=== PATIENT | female | born 1985 | race Caucasian/White ===

== ENCOUNTER 2016-06-01 13:30 | Emergency (ER) | payer BC ==
[2016-06-01] MEDS ORDERED: ONDANSETRON 4 MG/2 ML VIAL IVP STA (14:29)
[2016-06-01] MEDS ORDERED: SODIUM CHLORIDE 0.9% 1,000 ML IV STA ×2 (14:29)
[2016-06-01] MEDS ORDERED: MORPHINE SULFATE 4 MG/ML SYRINGE IV STA (14:29)
[2016-06-01 15:06] LABS: Basophils # (A) 0.1 k/uL (0-0.2); Basophils % (A) 0 %; CH 27.7; CHCM 32.8; Eosinophils # (A) 0.1 k/uL (0-0.7); Eosinophils % (A) 1 %; HDW 2.27; HGB 13.9 gm/dL (11.4-16.0); Luc # (Auto) 0.27; Luc % (Auto) 2; Lymphocytes # (A) 2.5 k/uL (1.0-4.8); Lymphocytes % (A) 20 %; MCH 26.8 pg (25.0-35.0); MCHC 31.6 g/dL (31.0-37.0); MCV 84.7 fL (80.0-100.0); Mean Platelet Volume 6.6; Monocytes # (A) 0.5 k/uL (0-1.0); Monocytes % (A) 4 %; Neutrophils # (A) 9.4 k/uL (1.3-7.7); Neutrophils % (A) 74 %; RDW 12.5 % (11.5-15.5); WBC 12.7 k/uL (3.8-10.6); WBC (Perox) 12.86
[2016-06-01 15:07] LABS: Appearance,Urine Clear (Clear); Bilirubin,Urine Negative (Negative); Glucose,Urine (UA) Negative (Negative); Ketones,Urine Negative (Negative); Leukocyte Esterase,Urine Negative (Negative); Nitrite,Urine Negative (Negative); PH, Urine 6.5 (5.0-8.0); Protein,Urine Negative (Negative); Specific Gravity,Urine 1.005 (1.001-1.035); UA Billing (MACRO vs. MICRO) CHEM; Urobilinogen,Urine <2.0 mg/dL (<2.0)
[2016-06-01 15:22] LABS: ALT 37 U/L (9-52); AST 28 U/L (14-36); Alkaline Phosphatase 80 U/L (38-126); Amylase 48 U/L (30-110); Anion Gap 10 mmol/L; Blood Urea Nitrogen 15 mg/dL (7-17); C Reactive Protein <5.0 mg/L (<10.0); Carbon Dioxide 29 mmol/L (22-30); Chloride 104 mmol/L (98-107); Glucose 93 mg/dL (74-99); Non-African American GFR(MDRD) >60 (>60 ml/min/1.73 sqM); Potassium 3.9 mmol/L (3.5-5.1); Sodium 143 mmol/L (137-145); Total Bilirubin 0.4 mg/dL (0.2-1.3); Total Protein 7.8 g/dL (6.3-8.2)
[2016-06-01] MEDS ORDERED: RX INFO: IV CONTRAST WAS GIVEN 1 EACH MISC MISCELLANE PRN (16:08)
[2016-06-01] MEDS ORDERED: metroNIDAZOLE-NS PMX 500 MG in SALINE 1 100ML.BAG IVPB STA (16:09)
[2016-06-01] MEDS ORDERED: KETOROLAC 30 MG/ML 1 ML VIAL IVP STA (16:10)
[2016-06-01] MEDS ORDERED: METOCLOPRAMIDE 5 MG/ML 2 ML VIAL IVP STA (16:24)
--- NOTE | 2016-06-01 16:26 | XR ---
EXAMINATION TYPE: XR chest 2V DATE OF EXAM: 06/01/2016 4:23 PM COMPARISON: NONE INDICATION: Chest pain TECHNIQUE: Single frontal view of the chest is obtained. FINDINGS: The heart size is normal. The pulmonary vasculature is normal. The lungs are clear. IMPRESSION: 1. No acute pulmonary process.
--- NOTE | 2016-06-01 16:35 | XR ---
EXAMINATION TYPE: XR KUB DATE OF EXAM: 06/01/2016 4:23 PM COMPARISON: NONE INDICATION: Abdomen pain TECHNIQUE: 2 view abdomen upright view and frontal supine view FINDINGS: There is a normal bowel gas pattern. Psoas margins are normal. No organomegaly is present. No suspicious air-fluid levels or differential air-fluid levels are present. No free air is evident. IMPRESSION: 1. Unremarkable Abdomen
--- NOTE | 2016-06-01 16:52 | CT ---
EXAMINATION TYPE: CT abdomen pelvis w con DATE OF EXAM: 06/01/2016 4:43 PM COMPARISON: NONE INDICATION: Mid abdominal pain that radiates to back and left clavicle. DLP: 472.10 mGycm, Automated exposure control for dose reduction was used. CONTRAST: 100 mL of Omnipaque 300. Study performed without Oral Contrast TECHNIQUE: Axial images were obtained from above the diaphragm to the pubic rami in the axial plane a t 5 mm thick sections. Reconstructed images are reviewed on the computer in the coronal plane. FINDINGS: Limited CT sections are obtained the lung bases. The lung bases are clear. CT ABDOMEN: Liver: Normal Spleen: Normal Pancreas: Normal Adrenal glands: The adrenal glands are normal. Gallbladder: Normal , no pericholecystic fluid is evident. Kidneys: No masses are evident. No hydronephrosis is present. No cysts are present. Delayed images were obtained through the kidneys, which remain unremarkable. Aorta: Normal Inferior vena cava: Normal. CT PELVIS: Loops of bowel within the abdomen and pelvis are normal. Appendix: Not identified. Surgical clips suggesting prior resection. Correlate with the history. Urinary bladder: Normal. Genitourinary structures: Uterus is unremarkable. Adnexal regions are clear. Osseous structures: No suspicious lytic or sclerotic lesions. IMPRESSIONS: 1. No acute process evident.
[2016-06-01] MEDS ORDERED: SODIUM CHLORIDE 0.9% 1,000 ML IV ONE (17:53)
--- NOTE | 2016-06-01 17:53 | ED ---
Abdominal Pain HPI - General Chief Complaint: Abdominal Pain Stated Complaint: abdominal Pain Time Seen by Provider: 06/01/16 14:19 Source: patient Mode of arrival: ambulatory Limitations: no limitations - History of Present Illness Initial Comments: [place] pain since yesterday, started around 4 PM this in the umbilical area she denies any nausea and vomiting no diarrhea she status post appendectomy in 2007 , no history of gallstones no history of kidney stones. Denies any headaches no neck stiffness no chest pain does have a some referred pain to the left shoulder region. He denies any coughing or any sputum production he does hurt with a deep breaths - Related Data Home Medications Medication Instructions Recorded Confirmed Pnv with Ca,No.72/Iron/FA 1 tab PO HS 06/01/16 06/01/16 [ Plus Tablet] Previous Rx's Medication Instructions Recorded Pantoprazole [Protonix] 40 mg PO ONCE #30 tablet. 06/01/16 Allergies Allergy/AdvReac Type Severity Reaction Status Date / Time drospirenone [From FRANDY (28)] Allergy Unknown Verified 06/01/16 14:35 ethinyl estradiol Allergy Unknown Verified 06/01/16 14:35 [From FRANDY (28)] Review of Systems ROS Statement: Those systems with pertinent positive or pertinent negative responses have been documented in the HPI. ROS Other: All systems not noted in ROS Statement are negative. Past Medical History Past Medical History: No Reported History Additional Past Medical History / Comment(s): hx migraines, abdominal pain and mucous and blood rectally, History of Any Multi-Drug Resistant Organisms: None Reported Past Surgical History: Adenoidectomy, Appendectomy, Tonsillectomy Past Anesthesia/Blood Transfusion Reactions: No Reported Reaction Past Psychological History: No Psychological Hx Reported Smoking Status: Never smoker Past Alcohol Use History: Occasional Past Drug Use History: None Reported - Past Family History Mother Family Medical History: Cancer General Exam - General Exam Comments Initial Comments: General: The patient is awake and alert, in moderate distress Skin: Skin is warm and dry and no rashes or lesions are noted. Eye: Pupils are equal, round and reactive to light, extra-ocular movements are intact; there is normal conjunctiva bilaterally. Ears, nose, mouth and throat: There are moist mucous membranes and no oral lesions. Neck: The neck is supple, there is no tenderness Cardiovascular: There is a regular rate and rhythm. No murmur, rub or gallop is appreciated. Respiratory: To auscultation bilateral, no wheezing no rhonchi no distress respiratory florez noticed Gastrointestinal: Tender and paraumbilical area, no tenderness noticed him other parts of the abdomen, bowel sounds are positive Back: There is no tenderness to palpation in the midline. There is no obvious deformity. Musculoskeletal: Normal ROM, no tenderness, There is no pedal edema. There is no calf tenderness or swelling. No cords were appreciated. Neurological: CN II-XII intact, Cranial nerves III through XII are intact. There are no obvious motor or sensory deficits. Coordination appears grossly intact. Speech is normal. Psychiatric: Cooperative, appropriate mood & affect, normal judgment. Limitations: no limitations Course Vital Signs 06/01/16 06/01/16 06/01/16 13:33 16:44 17:45 Temperature 97.4 F L 98.1 F 97.8 F Pulse Rate 73 78 70 Respiratory 16 18 18 Rate Blood Pressure 111/66 99/58 83/45 O2 Sat by Pulse 99 99 100 Oximetry 06/01/16 18:27 Temperature Pulse Rate 76 Respiratory 18 Rate Blood Pressure 85/48 O2 Sat by Pulse 100 Oximetry Is in was reassessed 3 times during her stay in the ER, white count is slightly elevated 12.7 d-dimer is negative compressive metabolic panel is negative beta hCG is negative urine is negative his C-reactive protein is negative as far as imaging studies are concerning CT abdomen is unremarkable KUB and chest x-rays are unremarkable considering her abdominal pain could be from mom a cold sores in the stomach or duodenum patient was offered observation in the hospital for pain management or she can go home with some pain meds and PPIs and will refer her to Dr. Amin who did her colonoscopy sometime in the recent past she agreed with later she was given some morphine before she is discharged 4 mg intramuscular and now she be given a prescription for omeprazole 20 mg 1 tablet daily for one month as she be referred to Dr. Amin for EGD - Reevaluation(s) Reevaluation #2: 06/01/16 18:45 Patient was uncomfortable with the narcotics and she was advised to known stated oral anti-inflammatories are contraindicated she was advised to take Tylenol 1 g by mouth every 6 when necessary and numb protonic 40 mg by mouth once daily #30 Medical Decision Making - Lab Data Result diagrams: 06/01/16 14:40 06/01/16 14:40 Lab Results 06/01/16 06/01/16 06/01/16 Range/Units 14:40 14:40 14:40 WBC 12.7 H (3.8-10.6) k/uL RBC 5.20 (3.80-5.40) m/uL Hgb 13.9 (11.4-16.0) gm/dL Hct 44.0 (34.0-46.0) % MCV 84.7 (80.0-100.0) fL MCH 26.8 (25.0-35.0) pg MCHC 31.6 (31.0-37.0) g/dL RDW 12.5 (11.5-15.5) % Plt Count 392 (150-450) k/uL Neutrophils % 74 % Lymphocytes % 20 % Monocytes % 4 % Eosinophils % 1 % Basophils % 0 % Neutrophils # 9.4 H (1.3-7.7) k/uL Lymphocytes # 2.5 (1.0-4.8) k/uL Monocytes # 0.5 (0-1.0) k/uL Eosinophils # 0.1 (0-0.7) k/uL Basophils # 0.1 (0-0.2) k/uL D-Dimer (<0.60) mg/L FEU Sodium 143 (137-145) mmol/L Potassium 3.9 (3.5-5.1) mmol/L Chloride 104 (98-107) mmol/L Carbon Dioxide 29 (22-30) mmol/L Anion Gap 10 mmol/L BUN 15 (7-17) mg/dL Creatinine 0.70 (0.52-1.04) mg/dL Est GFR (MDRD) Af Amer >60 (>60 ml/min/1.73 sqM) Est GFR (MDRD) Non-Af >60 (>60 ml/min/1.73 sqM) Glucose 93 (74-99) mg/dL Calcium 10.0 (8.4-10.2) mg/dL Total Bilirubin 0.4 (0.2-1.3) mg/dL AST 28 (14-36) U/L ALT 37 (9-52) U/L Alkaline Phosphatase 80 (38-126) U/L C-Reactive Protein <5.0 (<10.0) mg/L Total Protein 7.8 (6.3-8.2) g/dL Albumin 4.8 (3.5-5.0) g/dL Amylase 48 (30-110) U/L Lipase 73 (23-300) U/L Urine Color Light Yellow Urine Appearance Clear (Clear) Urine pH 6.5 (5.0-8.0) Ur Specific [place] 1.005 (1.001-1.035) Urine Protein Negative (Negative) Urine Glucose (UA) Negative (Negative) Urine Ketones Negative (Negative) Urine Blood Negative (Negative) Urine Nitrate Negative (Negative) Urine Bilirubin Negative (Negative) Urine Urobilinogen <2.0 (<2.0) mg/dL Ur Leukocyte Esterase Negative (Negative) Urine HCG, Qual (Not Detectd) 06/01/16 06/01/16 Range/Units 14:40 14:40 WBC (3.8-10.6) k/uL RBC (3.80-5.40) m/uL Hgb (11.4-16.0) gm/dL Hct (34.0-46.0) % MCV (80.0-100.0) fL MCH (25.0-35.0) pg MCHC (31.0-37.0) g/dL RDW (11.5-15.5) % Plt Count (150-450) k/uL Neutrophils % % Lymphocytes % % Monocytes % % Eosinophils % % Basophils % % Neutrophils # (1.3-7.7) k/uL Lymphocytes # (1.0-4.8) k/uL Monocytes # (0-1.0) k/uL Eosinophils # (0-0.7) k/uL Basophils # (0-0.2) k/uL D-Dimer 0.37 (<0.60) mg/L FEU Sodium (137-145) mmol/L Potassium (3.5-5.1) mmol/L Chloride (98-107) mmol/L Carbon Dioxide (22-30) mmol/L Anion Gap mmol/L BUN (7-17) mg/dL Creatinine (0.52-1.04) mg/dL Est GFR (MDRD) Af Amer (>60 ml/min/1.73 sqM) Est GFR (MDRD) Non-Af (>60 ml/min/1.73 sqM) Glucose (74-99) mg/dL Calcium (8.4-10.2) mg/dL Total Bilirubin (0.2-1.3) mg/dL AST (14-36) U/L ALT (9-52) U/L Alkaline Phosphatase (38-126) U/L C-Reactive Protein (<10.0) mg/L Total Protein (6.3-8.2) g/dL Albumin (3.5-5.0) g/dL Amylase (30-110) U/L Lipase (23-300) U/L Urine Color Urine Appearance (Clear) Urine pH (5.0-8.0) Ur Specific [place] (1.001-1.035) Urine Protein (Negative) Urine Glucose (UA) (Negative) Urine Ketones (Negative) Urine Blood (Negative) Urine Nitrate (Negative) Urine Bilirubin (Negative) Urine Urobilinogen (<2.0) mg/dL Ur Leukocyte Esterase (Negative) Urine HCG, Qual Not Detected (Not Detectd) Disposition Clinical Impression: Abdominal pain Disposition: HOME SELF-CARE Condition: Good Additional Instructions: Advised to come back if symptoms get worse Prescriptions: Pantoprazole [Protonix] 40 mg PO ONCE #30 tablet.dr Referrals: Maco Espino MD [Primary Care Provider] - 1-2 days Aylin Wen MD [STAFF PHYSICIAN] - 1-2 days
[2016-06-01] MEDS ORDERED: SODIUM CHLORIDE 0.9% 1,000 ML IV SCH (18:00)
[2016-06-01] MEDS ORDERED: MORPHINE SULFATE 10 MG/ML SYRINGE IM STA (18:36)
[2016-06-01 19:16] VITALS: BP 93/60; PULSE 59; RESP 16; TEMP 98
== END 2016-06-01 19:16 | disposition home or self-care (01) ==
LOC: EC 13:30
DX: R10.33 Periumbilical pain (principal); Z88.8 Allergy status to other drugs, medicaments and biological substances; Z98.890 Other specified postprocedural states
CPT/HCPCS: 36415; 85379; 80053; 82150; 83690; 85025; 86140; 81003; 81025; 71020; 74000; 74177; 99284; 96365; 96367; 96375 ×4; 96372; 96361 ×2; J2270; J2765; J2405; J0696; J1885; Q9967

== ENCOUNTER 2018-01-22 02:27 | Inpatient (IN) | payer BC ==
[2018-01-22] MEDS ORDERED: SODIUM CHLORIDE 0.9% 1,000 ML IV ONE (02:30)
[2018-01-22] MEDS ORDERED: DILTIAZEM DRIP BOLUS FROM BAG 1 MG SOLN IV ONE (02:44)
[2018-01-22] MEDS ORDERED: DILTIAZEM 50 MG in SODIUM CHLORIDE 0.9% 40 ML IV SCH (02:45)
--- NOTE | 2018-01-22 02:51 | ED ---
Arrhythmia/Palpitations HPI - General Chief Complaint: Arrhythmia/Palpitations Stated Complaint: Palpitations Time Seen by Provider: 01/22/18 02:28 Source: patient Mode of arrival: EMS Limitations: no limitations - History of Present Illness Initial Comments: Rosa is a previously healthy 32-year-old female who is currently nearly 7 months and breast-feeding. She presents to the ED today via EMS for evaluation of palpitations. Patient reports she's been in her usual state of health, she not on any medications aside from [id number] Zyrtec for her seasonal ALLERGIES. She reports that she went to bed at her usual time and woke around 2 AM experiencing palpitations. Patient thought this was just related to a dream, she picked up [id number] child and carried the child back to her own bed. She then returned to her bedroom and noted that she is still having palpitations. She woke up her and asked him to feel her heartbeat, he agreed with her that her heart was racing but he then fell back asleep. Patient reports that her palpitations persisted for approximately 30 minutes, she got up and drink cold water and attempt to slow her heart down with no effect. At which time she decided to call for transfer to the hospital for further evaluation. Patient denies any preceding chest pain, shortness of breath or recent illness. She has no known cardiac disease. No family history of cardiac disease. No family history of sudden cardiac or arrhythmias that she is aware of. Patient does report that she intermittently gets some palpitations but assumed that this was related to exhaustion. - Related Data Home Medications Medication Instructions Recorded Confirmed Pnv,Calcium 72/Iron/Folic Acid 1 tab PO HS 06/01/16 01/22/17 [ Plus Tablet] Cetirizine HCl [Zyrtec] 10 mg PO HS 01/22/17 01/22/17 Allergies Allergy/AdvReac Type Severity Reaction Status Date / Time drospirenone [From FRANDY (28)] Allergy Unknown Verified 01/22/17 17:07 ethinyl estradiol Allergy Unknown Verified 01/22/17 17:07 [From FRANDY (28)] Review of Systems ROS Statement: Those systems with pertinent positive or pertinent negative responses have been documented in the HPI. ROS Other: All systems not noted in ROS Statement are negative. Past Medical History Past Medical History: No Reported History Additional Past Medical History / Comment(s): hx migraines, abdominal pain and mucous and blood rectally, still born History of Any Multi-Drug Resistant Organisms: None Reported Past Surgical History: Adenoidectomy, Appendectomy, Tonsillectomy Past Anesthesia/Blood Transfusion Reactions: No Reported Reaction Past Psychological History: No Psychological Hx Reported Smoking Status: Never smoker Past Alcohol Use History: None Reported Past Drug Use History: None Reported - Past Family History Mother Family Medical History: Cancer General Exam - General Exam Comments Initial Comments: GENERAL: Patient is well-developed and well-nourished. Patient is nontoxic and well- hydrated and is in mild distress. HENT: Normocephalic, Atraumatic. Neck is soft and supple. No significant lymphadenopathy is noted. Oropharynx is clear. Moist mucous membranes. Neck has full range of motion without eliciting any pain. EYES: The sclera were anicteric and conjunctiva were pink and moist. Extraocular movements were intact and pupils were equal round and reactive to light. Eyelids were unremarkable. PULMONARY: Unlabored respirations. Good breath sounds bilaterally. No audible rales rhonchi or wheezing was noted. CARDIOVASCULAR: Tachycardic, irregularly irregular ABDOMEN: Soft and nontender with normal bowel sounds. SKIN: Skin is warm and well perfused Noted to have contact dermatitis at sites where cardiac leads have been placed NEUROLOGIC: Patient is alert and oriented x3. Cranial nerves II through XII are grossly intact. Motor and sensory are also intact. Normal speech, volume and content. Symmetrical smile. MUSCULOSKELETAL: Normal extremities with adequate strength and full range of motion. No lower extremity swelling or edema. No calf tenderness. LYMPHATICS: No significant lymphadenopathy is noted PSYCHIATRIC: Normal psychiatric evaluation. Limitations: no limitations Limitations: no limitations Course Vital Signs 01/22/18 01/22/18 01/22/18 02:28 02:40 02:50 Temperature 98.6 F Pulse Rate 135 H 144 H 125 H Respiratory 18 12 15 Rate Blood Pressure 102/83 102/83 102/83 O2 Sat by Pulse 100 100 97 Oximetry 01/22/18 01/22/18 01/22/18 03:00 03:10 03:20 Temperature Pulse Rate 135 H 117 H 120 H Respiratory 18 12 16 Rate Blood Pressure 111/58 104/85 O2 Sat by Pulse 96 99 99 Oximetry 01/22/18 03:30 Temperature Pulse Rate Respiratory Rate Blood Pressure 119/76 O2 Sat by Pulse Oximetry EKG Findings - EKG Comments: EKG Findings:: EKG obtained at 2:34 AM, rate is 136, rhythm is irregularly irregular narrow complex tachycardia consistent with atrial fibrillation. Patient normal axis, QRS is 70, QTC is 436. There is no acute ST elevations or depressions. Medical Decision Making - Medical Decision Making Patient was seen and evaluated immediately upon arrival to the emergency department, patient was noted to be tachycardic with a heart rate in the 140s, blood pressure was stable, patient was complaining of palpitations but no chest pain or shortness of breath. EKG was obtained which revealed A. fib with RVR, further cardiac workup was ordered. Cardizem was ordered for rate control, patient remained on Cardizem for approximately one hour, rate was controlled in the 90s and rhythm did continue to be atrial fibrillation Labs are reviewed there is no significant abnormalities. She care was discussed with cardiology on-call, recommends IV heparin for anticoagulation and consideration of possible cardioversion later in the day. Patient will be kept nothing by mouth for this potential procedure. Admission orders were placed. - Lab Data Result diagrams: 01/22/18 02:37 01/22/18 02:37 Lab Results 01/22/18 01/22/18 01/22/18 Range/Units 02:18 02:18 02:18 WBC (3.8-10.6) k/uL RBC (3.80-5.40) m/uL Hgb (11.4-16.0) gm/dL Hct (34.0-46.0) % MCV (80.0-100.0) fL MCH (25.0-35.0) pg MCHC (31.0-37.0) g/dL RDW (11.5-15.5) % Plt Count (150-450) k/uL Neutrophils % % Lymphocytes % % Monocytes % % Eosinophils % % Basophils % % Neutrophils # (1.3-7.7) k/uL Lymphocytes # (1.0-4.8) k/uL Monocytes # (0-1.0) k/uL Eosinophils # (0-0.7) k/uL Basophils # (0-0.2) k/uL PT (9.0-12.0) sec INR (<1.2) APTT (22.0-30.0) sec D-Dimer (<0.60) mg/L FEU Sodium (137-145) mmol/L Potassium (3.5-5.1) mmol/L Chloride (98-107) mmol/L Carbon Dioxide (22-30) mmol/L Anion Gap mmol/L BUN (7-17) mg/dL Creatinine (0.52-1.04) mg/dL Est GFR (CKD-EPI)AfAm (>60 ml/min/1.73 sqM) Est GFR (CKD-EPI)NonAf (>60 ml/min/1.73 sqM) Glucose (74-99) mg/dL Calcium (8.4-10.2) mg/dL Magnesium (1.6-2.3) mg/dL Total Bilirubin (0.2-1.3) mg/dL AST (14-36) U/L ALT (9-52) U/L Alkaline Phosphatase (38-126) U/L Troponin I (0.000-0.034) ng/mL Total Protein (6.3-8.2) g/dL Albumin (3.5-5.0) g/dL TSH (0.465-4.680) mIU/L Free T4 (0.78-2.19) ng/dL Urine Color Colorless Urine Appearance Clear (Clear) Urine pH 6.5 (5.0-8.0) Ur Specific [place] 1.002 (1.001-1.035) Urine Protein Negative (Negative) Urine Glucose (UA) Negative (Negative) Urine Ketones Negative (Negative) Urine Blood Negative (Negative) Urine Nitrite Negative (Negative) Urine Bilirubin Negative (Negative) Urine Urobilinogen <2.0 (<2.0) mg/dL Ur Leukocyte Esterase Negative (Negative) Urine HCG, Qual Not Detected (Not Detectd) Urine Opiates Screen Not Detected (NotDetected) Ur Oxycodone Screen Not Detected (NotDetected) Urine Methadone Screen Not Detected (NotDetected) Ur Propoxyphene Screen Not Detected (NotDetected) Ur Barbiturates Screen Not Detected (NotDetected) U Tricyclic Antidepress Not Detected (NotDetected) Ur Phencyclidine Scrn Not Detected (NotDetected) Ur Amphetamines Screen Not Detected (NotDetected) U Methamphetamines Scrn Not Detected (NotDetected) U Benzodiazepines Scrn Not Detected (NotDetected) Urine Cocaine Screen Not Detected (NotDetected) U Marijuana (THC) Screen Not Detected (NotDetected) 01/22/18 01/22/18 01/22/18 Range/Units 02:37 02:37 02:37 WBC 9.9 (3.8-10.6) k/uL RBC 5.24 (3.80-5.40) m/uL Hgb 14.4 (11.4-16.0) gm/dL Hct 44.5 (34.0-46.0) % MCV 84.8 (80.0-100.0) fL MCH 27.5 (25.0-35.0) pg MCHC 32.4 (31.0-37.0) g/dL RDW 11.9 (11.5-15.5) % Plt Count 331 (150-450) k/uL Neutrophils % 58 % Lymphocytes % 32 % Monocytes % 6 % Eosinophils % 1 % Basophils % 0 % Neutrophils # 5.7 (1.3-7.7) k/uL Lymphocytes # 3.1 (1.0-4.8) k/uL Monocytes # 0.6 (0-1.0) k/uL Eosinophils # 0.1 (0-0.7) k/uL Basophils # 0.0 (0-0.2) k/uL PT 10.0 (9.0-12.0) sec INR 1.0 (<1.2) APTT 24.8 (22.0-30.0) sec D-Dimer 0.41 (<0.60) mg/L FEU Sodium 142 (137-145) mmol/L Potassium 3.8 (3.5-5.1) mmol/L Chloride 110 H (98-107) mmol/L Carbon Dioxide 25 (22-30) mmol/L Anion Gap 7 mmol/L BUN 18 H (7-17) mg/dL Creatinine 0.73 (0.52-1.04) mg/dL Est GFR (CKD-EPI)AfAm >90 (>60 ml/min/1.73 sqM) Est GFR (CKD-EPI)NonAf >90 (>60 ml/min/1.73 sqM) Glucose 92 (74-99) mg/dL Calcium 10.0 (8.4-10.2) mg/dL Magnesium 2.2 (1.6-2.3) mg/dL Total Bilirubin 0.4 (0.2-1.3) mg/dL AST 33 (14-36) U/L ALT 48 (9-52) U/L Alkaline Phosphatase 98 (38-126) U/L Troponin I (0.000-0.034) ng/mL Total Protein 7.3 (6.3-8.2) g/dL Albumin 4.3 (3.5-5.0) g/dL TSH <0.015 L (0.465-4.680) mIU/L Free T4 1.59 (0.78-2.19) ng/dL Urine Color Urine Appearance (Clear) Urine pH (5.0-8.0) Ur Specific [place] (1.001-1.035) Urine Protein (Negative) Urine Glucose (UA) (Negative) Urine Ketones (Negative) Urine Blood (Negative) Urine Nitrite (Negative) Urine Bilirubin (Negative) Urine Urobilinogen (<2.0) mg/dL Ur Leukocyte Esterase (Negative) Urine HCG, Qual (Not Detectd) Urine Opiates Screen (NotDetected) Ur Oxycodone Screen (NotDetected) Urine Methadone Screen (NotDetected) Ur Propoxyphene Screen (NotDetected) Ur Barbiturates Screen (NotDetected) U Tricyclic Antidepress (NotDetected) Ur Phencyclidine Scrn (NotDetected) Ur Amphetamines Screen (NotDetected) U Methamphetamines Scrn (NotDetected) U Benzodiazepines Scrn (NotDetected) Urine Cocaine Screen (NotDetected) U Marijuana (THC) Screen (NotDetected) 01/22/18 01/22/18 Range/Units 02:37 02:37 WBC (3.8-10.6) k/uL RBC (3.80-5.40) m/uL Hgb (11.4-16.0) gm/dL Hct (34.0-46.0) % MCV (80.0-100.0) fL MCH (25.0-35.0) pg MCHC (31.0-37.0) g/dL RDW (11.5-15.5) % Plt Count (150-450) k/uL Neutrophils % % Lymphocytes % % Monocytes % % Eosinophils % % Basophils % % Neutrophils # (1.3-7.7) k/uL Lymphocytes # (1.0-4.8) k/uL Monocytes # (0-1.0) k/uL Eosinophils # (0-0.7) k/uL Basophils # (0-0.2) k/uL PT (9.0-12.0) sec INR (<1.2) APTT (22.0-30.0) sec D-Dimer (<0.60) mg/L FEU Sodium (137-145) mmol/L Potassium (3.5-5.1) mmol/L Chloride (98-107) mmol/L Carbon Dioxide (22-30) mmol/L Anion Gap mmol/L BUN (7-17) mg/dL Creatinine (0.52-1.04) mg/dL Est GFR (CKD-EPI)AfAm (>60 ml/min/1.73 sqM) Est GFR (CKD-EPI)NonAf (>60 ml/min/1.73 sqM) Glucose (74-99) mg/dL Calcium (8.4-10.2) mg/dL Magnesium 2.2 (1.6-2.3) mg/dL Total Bilirubin (0.2-1.3) mg/dL AST (14-36) U/L ALT (9-52) U/L Alkaline Phosphatase (38-126) U/L Troponin I <0.012 (0.000-0.034) ng/mL Total Protein (6.3-8.2) g/dL Albumin (3.5-5.0) g/dL TSH (0.465-4.680) mIU/L Free T4 (0.78-2.19) ng/dL Urine Color Urine Appearance (Clear) Urine pH (5.0-8.0) Ur Specific [place] (1.001-1.035) Urine Protein (Negative) Urine Glucose (UA) (Negative) Urine Ketones (Negative) Urine Blood (Negative) Urine Nitrite (Negative) Urine Bilirubin (Negative) Urine Urobilinogen (<2.0) mg/dL Ur Leukocyte Esterase (Negative) Urine HCG, Qual (Not Detectd) Urine Opiates Screen (NotDetected) Ur Oxycodone Screen (NotDetected) Urine Methadone Screen (NotDetected) Ur Propoxyphene Screen (NotDetected) Ur Barbiturates Screen (NotDetected) U Tricyclic Antidepress (NotDetected) Ur Phencyclidine Scrn (NotDetected) Ur Amphetamines Screen (NotDetected) U Methamphetamines Scrn (NotDetected) U Benzodiazepines Scrn (NotDetected) Urine Cocaine Screen (NotDetected) U Marijuana (THC) Screen (NotDetected) Disposition Clinical Impression: Atrial fibrillation Disposition: ADMITTED IP TO THIS HOSP
[2018-01-22 02:52] LABS: Basophils % (A) 0 %; Eosinophils # (A) 0.1 k/uL (0-0.7); Eosinophils % (A) 1 %; HCT 44.5 % (34.0-46.0); HGB 14.4 gm/dL (11.4-16.0); Lymphocytes # (A) 3.1 k/uL (1.0-4.8); Lymphocytes % (A) 32 %; MCH 27.5 pg (25.0-35.0); MCHC 32.4 g/dL (31.0-37.0); MCV 84.8 fL (80.0-100.0); Mean Platelet Volume 6.6; Monocytes # (A) 0.6 k/uL (0-1.0); Monocytes % (A) 6 %; Neutrophils # (A) 5.7 k/uL (1.3-7.7); Neutrophils % (A) 58 %; Platelet Count 331 k/uL (150-450); RBC 5.24 m/uL (3.80-5.40); RDW 11.9 % (11.5-15.5); WBC 9.9 k/uL (3.8-10.6)
[2018-01-22 03:06] LABS: ALT 48 U/L (9-52); AST 33 U/L (14-36); Albumin 4.3 g/dL (3.5-5.0); Alkaline Phosphatase 98 U/L (38-126); Anion Gap 7 mmol/L; Blood Urea Nitrogen 18 mg/dL (7-17); Carbon Dioxide 25 mmol/L (22-30); Chloride 110 mmol/L (98-107); Glucose 92 mg/dL (74-99); Magnesium 2.2 mg/dL (1.6-2.3); Potassium 3.8 mmol/L (3.5-5.1); Sodium 142 mmol/L (137-145); Total Bilirubin 0.4 mg/dL (0.2-1.3); Total Protein 7.3 g/dL (6.3-8.2)
[2018-01-22 03:07] LABS: Appearance,Urine Clear (Clear); Bilirubin,Urine Negative (Negative); Blood,Urine Negative (Negative); Color,Urine Colorless; Glucose,Urine (UA) Negative (Negative); Ketones,Urine Negative (Negative); Leukocyte Esterase,Urine Negative (Negative); Nitrite,Urine Negative (Negative); PH, Urine 6.5 (5.0-8.0); Protein,Urine Negative (Negative); Specific Gravity,Urine 1.002 (1.001-1.035); Urobilinogen,Urine <2.0 mg/dL (<2.0)
[2018-01-22 03:10] LABS: D-Dimer 0.41 mg/L FEU (<0.60); Partial Thromboplastin Time 24.8 sec (22.0-30.0)
[2018-01-22 03:15] LABS: Amphetamine Screen,Urine Not Detected (NotDetected); Barbiturate Screen,Urine Not Detected (NotDetected); Benzodiazepines Screen,Urine Not Detected (NotDetected); Cocaine Screen,Urine Not Detected (NotDetected); Methadone Screen, Urine Not Detected (NotDetected); Opiate Screen,Urine Not Detected (NotDetected); Oxycodone Screen, Urine Not Detected (NotDetected); Phencyclidine Screen,Urine Not Detected (NotDetected); Tricyclic Antidepressant,Urine Not Detected (NotDetected); Urn Cannabinoid Scrn Not Detected (NotDetected)
--- NOTE | 2018-01-22 03:20 | XR ---
EXAM: XR Chest, 2 Views CLINICAL HISTORY: Pain TECHNIQUE: Frontal and lateral views of the chest. COMPARISON: 06/01/2016 FINDINGS: Lungs: Unremarkable. No consolidation. Pleural space: Unremarkable. No pneumothorax. Heart: Unremarkable. No cardiomegaly. Mediastinum: Unremarkable. Bones/joints: Unremarkable. IMPRESSION: No focal airspace disease, significant interval change or acute cardiopulmonary process identified.
[2018-01-22] MEDS ORDERED: NALOXONE 0.4 MG/ML 1 ML VIAL IV PRN (03:29)
[2018-01-22 04:05] LABS: T4, Free (Free Thyroxine) 1.59 ng/dL (0.78-2.19)
[2018-01-22] MEDS ORDERED: HEPARIN SODIUM,PORCINE 5,000 UNIT/ML 1 ML VIAL IV PRN (04:09)
[2018-01-22] MEDS ORDERED: HEPARIN SODIUM,PORCINE 5,000 UNIT/ML 1 ML VIAL IV ONE (04:09)
[2018-01-22] MEDS ORDERED: HEPARIN SOD,PORK IN 0.45% NACL 25,000 UNIT in 0.45% NACL 1 500ML.BAG IV SCH (04:15)
[2018-01-22] MEDS: SODIUM CHLORIDE 0.9% 1,000 ML IV SCH ×3 (04:46→21:07)
[2018-01-22] MEDS: ACETAMINOPHEN TAB 500 MG TAB PO PRN ×2 (05:48→12:53)
[2018-01-22 07:36] VITALS: BMI 28.6
--- NOTE | 2018-01-22 10:44 | P.CRDCN ---
History of Present Illness Consult date: 01/22/18 Requesting physician: Lawrence Dominguez Consult reason: atrial fibrillation Chief complaint: Palpitations History of present illness: This is a pleasant 32-year-old female who is nearly 7 months , continues to be breast-feeding. States that she woke up around 1: 00 in the morning with palpitations. Because the palpitations persisted, she googled what to do, got up and drank a glass of cold water. In spite of that the palpitations persisted. She called her neighbor who works for EMS, they sent the EMS workers out to come and examine her, EKG was performed which showed irregularity and rapid rhythm was advised to come to the emergency room for further evaluation. Patient's home medications include vitamin and Zyrtec. Patient does state that she was mildly dizzy, she denies any shortness of breath. Patient states that she only has one or 2 cups of coffee a day, rarely drinks alcohol, no energy drinks. She is a nonsmoker. No social drug use. EKG on arrival here showed atrial fibrillation with a rapid ventricular response. Chest x-ray did not reveal any focal air space disease. Blood pressure on arrival here 102/82, heart rate in the 130s to 140s, 100% on room air. White blood cell count 9.9, hemoglobin 14.4, platelet count 331. D-dimer 0.4. Sodium 142, potassium 3.8, BUN 18, creatinine 0.7. TSH level 0.015, free T4 1.59. His morning patient is in a normal sinus rhythm, she feels well, denies any palpitations, no dizziness or lightheadedness. No difficulty in breathing. Past Medical History Past Medical History: No Reported History Additional Past Medical History / Comment(s): Pt is 7 months and is breast feeding, past abdominal pain/rectal bleed, migraines years ago. History of Any Multi-Drug Resistant Organisms: None Reported Past Surgical History: Adenoidectomy, Appendectomy, Tonsillectomy Additional Past Surgical History / Comment(s): 2016 colonoscopy/polypectomy which was precancerous per pt. Past Anesthesia/Blood Transfusion Reactions: No Reported Reaction Smoking Status: Never smoker - Past Family History Mother Family Medical History: Cancer Additional Family Medical History / Comment(s): Mother of lung cancer. She was a smoker. Father Family Medical History: No Reported History Sister(s) Additional Family Medical History / Comment(s): Sister has mitral valve prolapse. Medications and Allergies Home Medications Medication Instructions Recorded Confirmed Type Pnv,Calcium 72/Iron/Folic Acid 1 tab PO HS 06/01/16 01/22/18 History [ Plus Tablet] Cetirizine HCl [Zyrtec] 10 mg PO HS 01/22/17 01/22/18 History Allergies Allergy/AdvReac Type Severity Reaction Status Date / Time drospirenone [From FRANDY (28)] Allergy Unknown Verified 01/22/18 06:45 ethinyl estradiol Allergy Unknown Verified 01/22/18 06:45 [From FRANDY ()] Physical Exam Vitals: Vital Signs Temp Pulse Pulse Resp BP BP Pulse Ox 01/22/18 07:53 97.6 F 65 16 95/61 97 01/22/18 06:10 101 H 14 99/62 01/22/18 06:00 99 14 105/80 01/22/18 05:30 116 H 15 105/80 01/22/18 05:20 131 H 12 113/82 01/22/18 05:10 123 H 14 113/82 01/22/18 05:00 102 H 17 110/75 01/22/18 04:50 114 H 13 01/22/18 04:40 105 H 10 L 114/88 01/22/18 04:30 118 H 14 114/88 01/22/18 04:20 115 H 13 106/74 01/22/18 04:10 98 11 L 106/74 01/22/18 04:00 107 H 13 115/75 01/22/18 03:51 121 H 18 115/75 01/22/18 03:41 115 H 13 115/75 01/22/18 03:30 119/76 01/22/18 03:20 120 H 16 104/85 99 01/22/18 03:10 117 H 12 111/58 99 01/22/18 03:00 135 H 18 96 01/22/18 02:50 125 H 15 102/83 97 01/22/18 02:40 144 H 12 102/83 100 01/22/18 02:28 98.6 F 135 H 18 102/83 100 Intake and Output 01/21/18 01/22/18 01/22/18 22:59 06:59 14:59 Intake Total 4.917 125 Balance 4.917 125 Intake: Intake, IV Titration 4.917 125 Amount Diltiazem 50 mg In Sodium 4.917 Chloride 0.9% 40 ml @ Per Protocol IV .Q0M RAFAL Rx#:[id number] Sodium Chloride 0.9% 1, 125 000 ml @ 125 mls/hr IV . Q8H RAFAL Rx#:[id number] Other: Weight 78.018 kg 78 kg PHYSICAL EXAMINATION: GENERAL: 32-year-old female in no acute distress at the time of my examination HEENT: Head is atraumatic, normocephalic. Pupils equal, round. Sclera anicteric. Conjunctiva are clear. Mucous membranes of the mouth are moist. Neck is supple. There is no elevated jugular venous pressure. No carotid bruit is heard. HEART EXAMINATION: Heart S1, S2 normal. No murmur or gallop heard. CHEST EXAMINATION: Lungs are clear to auscultation and precussion. No chest wall tenderness is noted on palpation or with deep breathing. ABDOMEN: Soft, nontender. Bowel sounds are heard. No organomegaly noted. EXTREMITIES: 2+ peripheral pulses with no evidence of peripheral edema and no calf tenderness noted. NEUROLOGIC patient is awake, alert and oriented 3 . . Results 01/22/18 02:37 01/22/18 02:37 Cardiac Enzymes 01/22/18 01/22/18 Range/Units 02:37 02:37 AST 33 (14-36) U/L Troponin I <0.012 (0.000-0.034) ng/mL Coagulation 01/22/18 Range/Units 02:37 PT 10.0 (9.0-12.0) sec APTT 24.8 (22.0-30.0) sec CBC 01/22/18 Range/Units 02:37 WBC 9.9 (3.8-10.6) k/uL RBC 5.24 (3.80-5.40) m/uL Hgb 14.4 (11.4-16.0) gm/dL Hct 44.5 (34.0-46.0) % Plt Count 331 (150-450) k/uL Comprehensive Metabolic Panel 01/22/18 Range/Units 02:37 Sodium 142 (137-145) mmol/L Potassium 3.8 (3.5-5.1) mmol/L Chloride 110 H (98-107) mmol/L Carbon Dioxide 25 (22-30) mmol/L BUN 18 H (7-17) mg/dL Creatinine 0.73 (0.52-1.04) mg/dL Glucose 92 (74-99) mg/dL Calcium 10.0 (8.4-10.2) mg/dL AST 33 (14-36) U/L ALT 48 (9-52) U/L Alkaline Phosphatase 98 (38-126) U/L Total Protein 7.3 (6.3-8.2) g/dL Albumin 4.3 (3.5-5.0) g/dL Current Medications Generic Name Dose Route Start Last Admin Trade Name Freq PRN Reason Stop Dose Admin Acetaminophen 1,000 mg 01/22/18 05:34 01/22/18 05:48 Tylenol Tab PO 1,000 mg Q6HR PRN Administration Fever and/ or Pain Heparin Sodium (Porcine) 0 unit 01/22/18 04:09 Heparin IV PER PROTOCOL PRN Low PTT Protocol Diltiazem HCl 50 mg/ Sodium 50 mls @ 0 mls/hr 01/22/18 02:45 01/22/18 04:10 Chloride IV 10 mg/hr .Q0M RAFAL 10 mls/hr Titration Protocol Per Protocol Sodium Chloride 1,000 mls @ 125 mls/hr 01/22/18 03:30 01/22/18 04:46 Saline 0.9% IV 125 mls/hr .Q8H RAFAL Administration Heparin Sodium/Sodium Chloride 500 mls @ 18.72 mls/hr 01/22/18 04:15 04:46 25,000 unit/ Sodium Chloride IV 12 units/kg/hr .Q24H RAFAL 18.72 mls/hr Administration Protocol 12 UNITS/KG/HR Naloxone HCl 0.2 mg 01/22/18 03:29 Narcan IV Q2M PRN Opioid Reversal Intake and Output 01/21/18 01/22/18 01/22/18 22:59 06:59 14:59 Intake Total 4.917 125 Balance 4.917 125 Intake: Intake, IV Titration 4.917 125 Amount Diltiazem 50 mg In Sodium 4.917 Chloride 0.9% 40 ml @ Per Protocol IV .Q0M RAFAL Rx#:[id number] Sodium Chloride 0.9% 1, 125 000 ml @ 125 mls/hr IV . Q8H RAFAL Rx#:[id number] Other: Weight 78.018 kg 78 kg Patient Weight 01/23/18 06:59 Weight 78 kg 01/22/18 02:37 01/22/18 02:37 EKG Interpretations (text) Initial EKG atrial fibrillation with rapid ventricular response. Assessment and Plan Plan: Assessment and plan #1 atrial fibrillation with rapid ventricular response, paroxysmal, currently in normal sinus rhythm. #2 mild hyperthyroidism. #3 7 months , continues to breast-feed. Plan We will obtain an echocardiogram with Doppler study. Discontinue IV Cardizem. Discontinue IV heparin. Further recommendations to follow. DNP note has been reviewed, I agree with a documented findings and plan of care. Patient was seen and examined.
--- NOTE | 2018-01-22 11:04 | ECHOF ---
Referral Reason:afib MEASUREMENTS -------- HEIGHT: 165.1 cm WEIGHT: 77.6 kg BP: RVIDd: 2.4 cm (< 3.3) IVSd: 0.7 cm (0.6 - 1.1) LVIDd: 4.5 cm (3.9 - 5.3) LVPWd: 0.8 cm (0.6 - 1.1) IVSs: 1.1 cm LVIDs: 3.0 cm LVPWs: 1.3 cm Ao Diam: 2.8 cm (2.0 - 3.7) AV Cusp: 1.7 cm (1.5 - 2.6) LA Diam: 3.1 cm (2.7 - 3.8) MV EXCURSION: 18.612 mm (> 18.000) MV EF SLOPE: 152 mm/s (70 - 150) EPSS: 0.5 cm MV E Eduardo: 0.86 m/s MV DecT: 286 ms MV A Eduardo: 0.39 m/s MV E/A Ratio: 2.19 RAP: 5.00 mmHg RVSP: 14.31 mmHg FINDINGS -------- Sinus rhythm. This was a technically good study. The left ventricular size is normal. Left ventricular wall thickness is normal. Overall left vent ricular systolic function is normal with, an EF between 55 - 60 %. The right ventricle is normal in size and function. The left atrium is normal in size. The right atrium is normal in size. The aortic valve is trileaflet, and appears structurally normal. No aortic stenosis or regurgitation. There is trace mitral regurgitation. Trace tricuspid regurgitation present. The right ventricular systolic pressure, as measured by Dopp ler, is 14.31mmHg. Pulmonic valve appears structurally normal. The aortic root size is normal. Normal inferior vena cava with normal inspiratory collapse consistent with estimated right atrial pre ssure of 5 mmHg. The pericardium is normal. CONCLUSIONS -------- 1. Sinus rhythm. 2. This was a technically good study. 3. The left ventricular size is normal. 4. Left ventricular wall thickness is normal. 5. Overall left ventricular systolic function is normal with, an EF between 55 - 60 %. 6. The right ventricle is normal in size and function. 7. The left atrium is normal in size. 8. The right atrium is normal in size. 9. The aortic valve is trileaflet, and appears structurally normal. No aortic stenosis or regurgitati on. 10. There is trace mitral regurgitation. 11. Trace tricuspid regurgitation present. 12. The right ventricular systolic pressure, as measured by Doppler, is 14.31mmHg. 13. Pulmonic valve appears structurally normal. 14. The aortic root size is normal. 15. Normal inferior vena cava with normal inspiratory collapse consistent with estimated right atrial pressure of 5 mmHg. 16. The pericardium is normal. FACILITY MAINTENANCE TECHNICIAN: Antoinette Vizcarra RDCS
--- NOTE | 2018-01-22 19:55 | HP ---
HISTORY AND PHYSICAL DATE OF ADMISSION AND SERVICE: 01/22/2018 PRESENTING COMPLAINT: Heart racing. HISTORY OF PRESENTING COMPLAINT: This is a very pleasant 32-year-old patient who follows with Dr. Espino. She is in rather good health. She woke up around 1:00 and felt her heart racing. She did some simple things like calming herself down, took some water to see if the symptoms would settle down. Her heart kept racing. There was no dizziness, no lightheadedness, no perspiration. Her neighbor is with EMT and she called for hip and some EMS people came out, checked her out. Heart rate was found to be irregular. The patient presented to the ER. EKG was found to be in atrial flutter/fibrillation with a rate in the 130s. The patient was put on a Cardizem drip. The patient then reverted to sinus rhythm. The patient denies taking any medications. Denies excessive caffeine intake. No recreational drugs. No appetite stimulants or any other artificial products. The only thing the patient takes is Zyrtec for hives. The patient has remained in sinus rhythm since then. REVIEW OF SYSTEMS: CONSTITUTIONAL: Tired. HEENT: None. RESPIRATORY: None. CARDIOVASCULAR: As above. GASTROINTESTINAL: None. GENITOURINARY: None. MUSCULOSKELETAL: None. DERMATOLOGICAL: History of hives. HEMATOLOGICAL: None. LYMPHATICS: None. PSYCHIATRY: None. NEUROLOGICAL: None. PAST MEDICAL HISTORY: 1. Seven months , . 2. Gets hives. PAST SURGICAL HISTORY: 1. Adenoidectomy. 2. Appendectomy. 3. Tonsillectomy. SOCIAL HISTORY: The patient is with 3 children at home. No smoking. No alcohol. No recreational drugs. FAMILY HISTORY: Mother had lung cancer. HOME MEDICATIONS: 1. Plus Tablet 1 tablet p.o. at bedtime. 2. Zyrtec 10 mg at bedtime. ALLERGIES: FRANDY. PHYSICAL EXAMINATION: VITAL SIGNS ON PRESENTATION: Temperature 98.6, pulse 135, respiration 18, blood pressure 102/83, pulse ox 100% on room air. GENERAL APPEARANCE: Average build. Sitting up, awake. EYES: Pupils equal. Conjunctivae normal. HEENT: External appearance of nose and ears normal. Oral cavity normal. NECK: JVD not raised. Mass not palpable. RESPIRATORY: Effort normal. Lungs are clear. CARDIOVASCULAR: First and second sounds normal. No edema. ABDOMEN: Soft, non-tender. Liver and spleen not palpable. LYMPHATIC: No lymph node palpable in neck or axillae. PSYCHIATRY: Alert and oriented x3. Mood and affect normal. NEUROLOGICAL: Pupils equal. Cranial nerves grossly intact. Power and sensation grossly intact. INVESTIGATIONS: White count 9.9, hemoglobin 14.4, potassium 3.8. Troponin negative. TSH less than 0.015, free T4 1.59. UA negative. Urine drug screen negative. EKG personally reviewed by me; it shows atrial flutter/ fibrillation. Chest x-ray, personally reviewed by me, shows normal lung islas. ASSESSMENT: New-onset atrial fibrillation. The patient was put on IV Cardizem and patient reverted back to sinus rhythm. Patient's 2D echocardiogram does not show an enlarged left atrium. Abnormal TSH with a normal free T4. The patient may have a subclinical hyperthyroidism or abnormal free T3 production. This will need to be further worked up by Endocrinology as an outpatient. This was discussed with the patient. We will watch the patient overnight to make sure she remains in sinus rhythm. The patient has no risk factors and does not need anticoagulation. MMODL / IJN: [id number] /
[2018-01-23] MEDS: SODIUM CHLORIDE 0.9% 1,000 ML IV SCH ×2 (05:19→11:41)
[2018-01-23 07:17] LABS: Basophils % (A) 1 %; Eosinophils # (A) 0.1 k/uL (0-0.7); Eosinophils % (A) 2 %; HCT 38.8 % (34.0-46.0); HGB 12.6 gm/dL (11.4-16.0); Lymphocytes # (A) 1.9 k/uL (1.0-4.8); Lymphocytes % (A) 31 %; MCH 27.7 pg (25.0-35.0); MCHC 32.5 g/dL (31.0-37.0); MCV 85.2 fL (80.0-100.0); Mean Platelet Volume 6.8; Monocytes # (A) 0.3 k/uL (0-1.0); Monocytes % (A) 5 %; Neutrophils # (A) 3.7 k/uL (1.3-7.7); Neutrophils % (A) 60 %; Platelet Count 302 k/uL (150-450); RBC 4.55 m/uL (3.80-5.40); RDW 12.2 % (11.5-15.5); WBC 6.1 k/uL (3.8-10.6)
[2018-01-23 07:38] LABS: Anion Gap 5 mmol/L; Blood Urea Nitrogen 17 mg/dL (7-17); Calcium 9.1 mg/dL (8.4-10.2); Carbon Dioxide 24 mmol/L (22-30); Chloride 111 mmol/L (98-107); Glucose 87 mg/dL (74-99); Potassium 4.5 mmol/L (3.5-5.1); Sodium 140 mmol/L (137-145)
--- NOTE | 2018-01-23 09:50 | PN ---
PROGRESS NOTE Ms. Perry is a 32-year-old female who presented with episode of paroxysmal atrial fibrillation. She is back in sinus mechanism. She is feeling well today. Her breathing is stable. She is denying any chest pain. No dizziness or palpitation. She is ambulating without difficulty. She had an echocardiogram that revealed preserved ventricular size and systolic function with no significant valvular disease. PHYSICAL EXAMINATION: Her blood pressure is running in the 90s with a heart rate in the 60s. LUNGS: Clear. HEART: Regular rate and rhythm. S1, S2. No S3. No rub. ABDOMEN: Soft, nontender. EXTREMITIES: No edema. LAB DATA: BUN and creatinine 17 and 0.6. Her TSH is less than 0.015, yet her free T4 is 1.59, which is normal. IMPRESSION: Paroxysmal atrial fibrillation, remains in sinus mechanism, appears to be a lone atrial fibrillation. RECOMMENDATION: From the cardiac standpoint, she should be able to be discharged home today and followed as an outpatient to see if further cardiac workup will be needed. In the meantime, she will need to be evaluated by Endocrinology in relation to her TSH level. Patient does not require anticoagulation. Her CHADS-VASC score is only 1. MMODL / IJN: [id number] /
[2018-01-23 10:14] VITALS: BP 106/68; PULSE 70; RESP 20; TEMP 98.1
[2018-01-23] MEDS: ACETAMINOPHEN TAB 500 MG TAB PO PRN (10:48)
--- NOTE | 2018-01-24 00:11 | DS ---
DISCHARGE SUMMARY DATE OF ADMISSION: 01/22/2018. DATE OF DISCHARGE: 01/23/2018. FINAL DIAGNOSES: 1. Paroxysmal atrial fibrillation, back in sinus rhythm. 2. Abnormal TSH, cause undetermined. 3. Hyperchloremia. HOSPITAL COURSE: This patient presented with palpitations, found to be in atrial fibrillation with rapid ventricular rate, put on IV Cardizem. Did revert back to sinus rhythm. She has a Chads score is only 1. The patient does have abnormal TSH, though normal free T4. She will need further outpatient endocrinological workup. Today care was discussed in detail with the patient. We will give her Lopressor for a p.r.n. basis. Patient advised how to check her pulse. Questions were answered. It is also possible because of being 7 months, her abnormal TSH could be from hormonal changes if the patient is also breast-feeding. The patient is being set up with [employer] [facility]. The patient did have a 2-D echocardiogram that was unremarkable. There was no left atrial enlargement. CONSULTATION: Dr. Amador. HOME GO MEDICATIONS: Lopressor 12.5 p.o. b.i.d. p.r.n. for atrial fibrillation. PLAN FOR FOLLOW UP: With in 1 week from Endocrinology, Dr. Espino on 02/01/18. Dr. Amador on 02/01/2028. Discussion and discharge planning more than [address] Espino. ALIVIA / BENITO: [id number] /
== END 2018-01-23 15:21 | disposition home or self-care (01) | DRG 310 ==
LOC: EC 02:27 → 3SCARD 03:29
PROVIDERS: ADMIT Hospitalist; ATTEND Hospitalist
DX: I48.0 Paroxysmal atrial fibrillation (principal); I48.92 Unspecified atrial flutter; J30.2 Other seasonal allergic rhinitis; Z80.1 Family history of malignant neoplasm of trachea, bronchus and lung; E05.90 Thyrotoxicosis, unspecified without thyrotoxic crisis or storm; E87.8 Other disorders of electrolyte and fluid balance, not elsewhere classified; Z88.8 Allergy status to other drugs, medicaments and biological substances
CPT/HCPCS: 36415; 71046; 80048; 80053; 80306; 81003; 81025; 83735; 84439; 84443; 84484; 85025; 85379; 85610; 85730; 93005; 93306; 96365; 96366; 96368; 96376; 99285

== ENCOUNTER → 2018-03-01 | Outpatient (CLI) | payer BC ==
[2018-03-01 16:24] LABS: T4, Free (Free Thyroxine) 0.87 ng/dL (0.78-2.19)
--- NOTE | 2018-03-03 14:03 | US ---
EXAMINATION TYPE: US thyroid st tissue head/neck DATE OF EXAM: 03/01/2018 COMPARISON: NONE CLINICAL HISTORY: E05.90 SUBCLINICAL HYPERTHYROIDISM. GLAND SIZE: Right Lobe: 4.9 x 1.3 x 1.4 cm Overall Parenchyma: grossly heterogenous Left Lobe: 4.4 x 1.7 x 1.8 cm Overall Parenchyma: grossly heterogenous Isthmus Thickness: 0.5 cm NODULES RIGHT: # of nodules measured on right: 0 LEFT: # of nodules measured on left: 0 ISTHMUS: # of nodules measured in the isthmus: 0 Bilateral neck scanned, no evidence of lymphadenopathy. IMPRESSION: Findings may be indicative of underlying thyroiditis.
== END ==
LOC: RADUSWWP 14:58
PROVIDERS: ATTEND Internal Medicine Endocrinology, Diabetes & Metabolism
DX: E05.90 Thyrotoxicosis, unspecified without thyrotoxic crisis or storm (principal)
CPT/HCPCS: 36415; 76536; 84439; 84443; 84445; 84480

== ENCOUNTER 2018-04-27 10:21 | Emergency (ER) | payer BC ==
[2018-04-27 10:33] VITALS: RESP 18; TEMP 98.4
[2018-04-27] MEDS ORDERED: MECLIZINE 12.5 MG TAB PO STA (10:50)
[2018-04-27] MEDS ORDERED: SODIUM CHLORIDE 0.9% 1,000 ML IV STA ×2 (10:50)
[2018-04-27] MEDS ORDERED: diphenhydrAMINE 50 MG/ML 1 ML VIAL IVP STA (10:54)
[2018-04-27] MEDS ORDERED: METOCLOPRAMIDE 5 MG/ML 2 ML VIAL IVP STA (10:54)
--- NOTE | 2018-04-27 11:01 | ED ---
Headache HPI - General Chief Complaint: Headache Stated Complaint: vertigo, headache Time Seen by Provider: 04/27/18 10:35 Source: patient, RN notes reviewed Mode of arrival: ambulatory Limitations: no limitations - History of Present Illness Initial Comments: This is a 33-year-old female with no prior history of migraine headaches who does occasionally of vertigo who states she woke up around 3 AM with an ice pick type headache and right-sided her head she states was 5-6/10 severity she also has some vertigo with the nausea. She states when away now she's got a dull headache more global approximately 2-3/10 in severity. She states the dizziness she has does get somewhat worse with bending over in upright positioning. She states she was at her doctor's office prior in her blood pressure dropped she went from sitting to standing. She states she did not drink water this morning. She is 10 months post delivery of a daughter. She still breast-feeding trying to wean the daughter from breast-feeding. She has no prior history of any injury no neck injury no fevers chills nausea vomiting sweats no rhinorrhea no earache sore throat cough or phlegm production or other symptoms. No palpitations reported MD Complaint: headache, other - Related Data Home Medications Medication Instructions Recorded Confirmed Pnv,Calcium 72/Iron/Folic Acid 1 tab PO HS 06/01/16 04/27/18 [ Plus Tablet] Fexofenadine HCl [Ksenia Allergy] 180 mg PO HS 04/27/18 04/27/18 Previous Rx's Medication Instructions Recorded Meclizine [Antivert] 25 mg PO TID #20 tab 04/27/18 Allergies Allergy/AdvReac Type Severity Reaction Status Date / Time drospirenone [From FRANDY (28)] Allergy Unknown Verified 04/27/18 10:53 ethinyl estradiol Allergy Unknown Verified 04/27/18 10:53 [From FRANDY (28)] Review of Systems ROS Statement: Those systems with pertinent positive or pertinent negative responses have been documented in the HPI. ROS Other: All systems not noted in ROS Statement are negative. Past Medical History Past Medical History: No Reported History, Atrial Fibrillation Additional Past Medical History / Comment(s): Pt is 7 months and is breast feeding, past abdominal pain/rectal bleed, migraines years ago. History of Any Multi-Drug Resistant Organisms: None Reported Past Surgical History: Adenoidectomy, Appendectomy, Tonsillectomy Additional Past Surgical History / Comment(s): 2016 colonoscopy/polypectomy which was precancerous per pt. Past Anesthesia/Blood Transfusion Reactions: No Reported Reaction Past Psychological History: No Psychological Hx Reported Smoking Status: Never smoker Past Alcohol Use History: None Reported Past Drug Use History: None Reported - Past Family History Mother Family Medical History: Cancer Additional Family Medical History / Comment(s): Mother of lung cancer. She was a smoker. Father Family Medical History: No Reported History Sister(s) Additional Family Medical History / Comment(s): Sister has mitral valve prolapse. General Exam - General Exam Comments Initial Comments: This is a well-developed well-nourished awake alert oriented 3 female Limitations: no limitations General appearance: alert, in no apparent distress Head exam: Present: atraumatic, normocephalic, normal inspection Eye exam: Present: normal appearance, PERRL, EOMI. Absent: scleral icterus, conjunctival injection, periorbital swelling ENT exam: Present: mucous membranes dry, other (No tenderness to percussion over the frontal or maxillary sinuses.) Neck exam: Present: normal inspection, full ROM, other (No stridor JVD or bruits ). Absent: tenderness, meningismus, lymphadenopathy Respiratory exam: Present: normal lung sounds bilaterally. Absent: respiratory distress, wheezes, rales, rhonchi, stridor Cardiovascular Exam: Present: regular rate, normal rhythm, normal heart sounds. Absent: systolic murmur, diastolic murmur, rubs, gallop, clicks GI/Abdominal exam: Present: soft, normal bowel sounds. Absent: distended, tenderness, guarding, rebound, rigid Extremities exam: Present: normal inspection, full ROM, normal capillary refill. Absent: tenderness, pedal edema, joint swelling, calf tenderness Back exam: Present: normal inspection Neurological exam: Present: alert, oriented X3, CN II-XII intact Psychiatric exam: Present: normal affect, normal mood Skin exam: Present: warm, dry, intact, normal color. Absent: rash Course Vital Signs 04/27/18 04/27/18 10:28 12:20 Temperature 98.4 F Pulse Rate 69 Pulse Rate [ 54 L Sitting] Pulse Rate [ 65 Standing] Pulse Rate [ 51 L Supine] Respiratory 18 18 Rate Blood Pressure 109/71 Blood Pressure 87/56 [Right Arm] Blood Pressure 103/67 [Sitting] Blood Pressure 102/66 [Standing] O2 Sat by Pulse 100 98 Oximetry Medical Decision Making - Medical Decision Making Patient initially improved after the treatment rendered. The presentation consistent with cephalgia and vertigo. She'll be placed on appropriate medication or headache is improved no dizziness at this time - Lab Data Result diagrams: 04/27/18 11:16 04/27/18 11:16 Lab Results 04/27/18 04/27/18 04/27/18 Range/Units 11:16 11:16 11:16 WBC 7.2 (3.8-10.6) k/uL RBC 5.21 (3.80-5.40) m/uL Hgb 13.8 (11.4-16.0) gm/dL Hct 43.4 (34.0-46.0) % MCV 83.4 (80.0-100.0) fL MCH 26.4 (25.0-35.0) pg MCHC 31.7 (31.0-37.0) g/dL RDW 12.9 (11.5-15.5) % Plt Count 317 (150-450) k/uL Neutrophils % 65 % Lymphocytes % 27 % Monocytes % 4 % Eosinophils % 1 % Basophils % 1 % Neutrophils # 4.7 (1.3-7.7) k/uL Lymphocytes # 1.9 (1.0-4.8) k/uL Monocytes # 0.3 (0-1.0) k/uL Eosinophils # 0.1 (0-0.7) k/uL Basophils # 0.0 (0-0.2) k/uL Sodium 142 (137-145) mmol/L Potassium 4.4 (3.5-5.1) mmol/L Chloride 109 H (98-107) mmol/L Carbon Dioxide 27 (22-30) mmol/L Anion Gap 6 mmol/L BUN 18 H (7-17) mg/dL Creatinine 0.76 (0.52-1.04) mg/dL Est GFR (CKD-EPI)AfAm >90 (>60 ml/min/1.73 sqM) Est GFR (CKD-EPI)NonAf >90 (>60 ml/min/1.73 sqM) Glucose 83 (74-99) mg/dL Calcium 9.6 (8.4-10.2) mg/dL Magnesium 2.1 (1.6-2.3) mg/dL Total Bilirubin 0.4 (0.2-1.3) mg/dL AST 30 (14-36) U/L ALT 39 (9-52) U/L Alkaline Phosphatase 78 (38-126) U/L Total Creatine Kinase 61 (30-135) U/L CK-MB (CK-2) 0.6 (0.0-2.4) ng/mL CK-MB (CK-2) Rel Index 1.0 Total Protein 7.4 (6.3-8.2) g/dL Albumin 4.6 (3.5-5.0) g/dL - Radiology Data Radiology results: report reviewed (I did review the imaging and report no acute evidence of abnormalities.), image reviewed Disposition Clinical Impression: Vertigo, Cephalgia, Dehydration Disposition: HOME SELF-CARE Condition: Good Instructions (If sedation given, give patient instructions): Acute Headache (ED ), Benign Paroxysmal Positional Vertigo (ED), Dehydration (ED) Prescriptions: Meclizine [Antivert] 25 mg PO TID #20 tab Is patient prescribed a controlled substance at d/c from ED?: No Referrals: Maco Espino MD [Primary Care Provider] - 1-2 days
[2018-04-27 11:39] LABS: Basophils % (A) 1 %; Eosinophils # (A) 0.1 k/uL (0-0.7); Eosinophils % (A) 1 %; HCT 43.4 % (34.0-46.0); HGB 13.8 gm/dL (11.4-16.0); Lymphocytes # (A) 1.9 k/uL (1.0-4.8); Lymphocytes % (A) 27 %; MCH 26.4 pg (25.0-35.0); MCHC 31.7 g/dL (31.0-37.0); MCV 83.4 fL (80.0-100.0); Mean Platelet Volume 6.9; Monocytes # (A) 0.3 k/uL (0-1.0); Monocytes % (A) 4 %; Neutrophils # (A) 4.7 k/uL (1.3-7.7); Neutrophils % (A) 65 %; Platelet Count 317 k/uL (150-450); RBC 5.21 m/uL (3.80-5.40); RDW 12.9 % (11.5-15.5); WBC 7.2 k/uL (3.8-10.6)
[2018-04-27 11:48] LABS: Anion Gap 6 mmol/L; Blood Urea Nitrogen 18 mg/dL (7-17); Carbon Dioxide 27 mmol/L (22-30); Chloride 109 mmol/L (98-107); Glucose 83 mg/dL (74-99); Potassium 4.4 mmol/L (3.5-5.1); Sodium 142 mmol/L (137-145)
[2018-04-27 11:49] LABS: ALT 39 U/L (9-52); AST 30 U/L (14-36); Albumin 4.6 g/dL (3.5-5.0); Alkaline Phosphatase 78 U/L (38-126); Calcium 9.6 mg/dL (8.4-10.2); Magnesium 2.1 mg/dL (1.6-2.3); Total Bilirubin 0.4 mg/dL (0.2-1.3); Total Protein 7.4 g/dL (6.3-8.2)
[2018-04-27 12:07] LABS: Creatine Kinase MB 0.6 ng/mL (0.0-2.4)
--- NOTE | 2018-04-27 13:15 | CT ---
EXAMINATION TYPE: CT brain wo con DATE OF EXAM: 04/27/2018 COMPARISON: None. HISTORY: Vertigo, headache. Dizziness per order. CT DLP: 1060.4 mGycm. Automated Exposure Control for Dose Reduction was Utilized. TECHNIQUE: CT scan of the head is performed without contrast. FINDINGS: There is no acute intracranial hemorrhage, mass effect, or midline shift identified. The ventricles and sulci are within normal limits in size. The globes are intact and the visualized sin uses are clear. IMPRESSION: No acute intracranial hemorrhage or midline shift is seen.
[2018-04-27 13:48] VITALS: BP 95/65; PULSE 58
== END 2018-04-27 13:50 | disposition home or self-care (01) ==
LOC: EC 10:21
DX: E86.0 Dehydration (principal); R51 Headache; R11.0 Nausea; Z88.8 Allergy status to other drugs, medicaments and biological substances; Z79.899 Other long term (current) drug therapy; Z90.49 Acquired absence of other specified parts of digestive tract
CPT/HCPCS: 36415; 80053; 82550; 82553; 83735; 85025; 70450; 99284; 96374; 96375; 96361 ×3; J1200; J2765

== ENCOUNTER → 2018-05-23 | Outpatient (CLI) | payer BC ==
[2018-05-23 18:53] LABS: T4, Free (Free Thyroxine) 0.9 ng/dL (0.80-1.80)
== END ==
LOC: LABWHC1 12:52
PROVIDERS: ATTEND Internal Medicine Endocrinology, Diabetes & Metabolism
DX: E05.90 Thyrotoxicosis, unspecified without thyrotoxic crisis or storm (principal)
CPT/HCPCS: 36415; 84439; 84443; 84480

== ENCOUNTER 2018-07-07 03:57 | Emergency (ER) | payer BC ==
[2018-07-07] MEDS ORDERED: SODIUM CHLORIDE 0.9% 1,000 ML IV STA (04:32)
--- NOTE | 2018-07-07 04:57 | ED ---
Abdominal Pain HPI - General Chief Complaint: Abdominal Pain Stated Complaint: abd pain, fever Time Seen by Provider: 07/07/18 04:32 Source: patient, family Mode of arrival: ambulatory Limitations: no limitations - History of Present Illness Initial Comments: Etta is a pleasant 33-year-old female presents the emergency department today for gnawing epigastric abdominal pain. Patient reports that she experiences vague epigastric abdominal pain intermittently usually she attributes it to something she ate usually lasts only hours and resolves. Patient reports her family did eat pizza for dinner last night she ports around 9 PM she began feeling epigastric abdominal pain and nausea. She laid in bed throughout the night but was unable to sleep which prompted her to come the ER for evaluation. Patient distal however gallbladder she has no history of any gallbladder pathology. She has no history of any known GI pathology including ulcerative c olitis, Crohn's or any food ALLERGIES. Patient describes her discomfort as a gnawing epigastric burning sensation that radiates to her back and is associated with some nausea. Denies associated fevers, chills vomiting change in bowel or bladder habits or any chest pain or shortness breath. MD Complaint: abdominal pain - Related Data Home Medications Medication Instructions Recorded Confirmed Pnv,Calcium 72/Iron/Folic Acid 1 tab PO HS 06/01/16 04/27/18 [ Plus Tablet] Fexofenadine HCl [Ksenia Allergy] 180 mg PO HS 04/27/18 04/27/18 Previous Rx's Medication Instructions Recorded Meclizine [Antivert] 25 mg PO TID #20 tab 04/27/18 Allergies Allergy/AdvReac Type Severity Reaction Status Date / Time drospirenone [From FRANDY (28)] Allergy Unknown Verified 07/07/18 04:08 ethinyl estradiol Allergy Unknown Verified 07/07/18 04:08 [From FRANDY (28)] Review of Systems ROS Statement: Those systems with pertinent positive or pertinent negative responses have been documented in the HPI. ROS Other: All systems not noted in ROS Statement are negative. Past Medical History Past Medical History: No Reported History, Atrial Fibrillation History of Any Multi-Drug Resistant Organisms: None Reported Past Surgical History: Adenoidectomy, Appendectomy, Tonsillectomy Additional Past Surgical History / Comment(s): 2016 colonoscopy/polypectomy which was precancerous per pt. Past Anesthesia/Blood Transfusion Reactions: No Reported Reaction Past Psychological History: No Psychological Hx Reported Smoking Status: Never smoker Past Alcohol Use History: None Reported Past Drug Use History: None Reported - Past Family History Mother Family Medical History: Cancer Additional Family Medical History / Comment(s): Mother of lung cancer. She was a smoker. Father Family Medical History: No Reported History Sister(s) Additional Family Medical History / Comment(s): Sister has mitral valve prolapse . General Exam - General Exam Comments Initial Comments: Physical Exam GENERAL: Patient is well-developed and well-nourished. Patient is nontoxic and well- hydrated and is in no distress. HENT: Normocephalic, Atraumatic. EYES: PERRL, EOMI PULMONARY: Unlabored respirations. No audible rales rhonchi or wheezing was noted. CARDIOVASCULAR: There is a regular rate and rhythm without any murmurs gallops or rubs. ABDOMEN: Soft with normal bowel sounds. Mild tenderness to deep palpation of the epigastrium and right upper quadrant SKIN: Skin is clear with no lesions or rashes and otherwise unremarkable. : Deferred NEUROLOGIC: Patient is alert and oriented x3. Moving all extremities spontaneously MUSCULOSKELETAL: Normal extremities with adequate strength and full range of motion. No lower extremity swelling or edema. No calf tenderness. PSYCHIATRIC: Normal psychiatric evaluation. Limitations: no limitations Limitations: no limitations Course Vital Signs 07/07/18 07/07/18 04:03 07:09 Temperature 98.4 F 98.3 F Pulse Rate 89 73 Respiratory 20 18 Rate Blood Pressure 106/74 96/65 O2 Sat by Pulse 99 98 Oximetry Medical Decision Making - Medical Decision Making The patient was seen and evaluated history is obtained from the patient Patient with epigastric discomfort overnight Labs were ordered Labs are reviewed, transaminases and bilirubin are within normal limits Patient was given a GI cocktail and reevaluated she reported that her discomfort improved significantly after that. Results were discussed with the patient. Patient then admitted that she had eaten pizza for dinner prior to going to bed and thinks that this contributed to her epigastric discomfort. I agreed with the patient I recommended that bland diet, starting a PPI and follow-up with primary care for possible referral to gastroenterology. All questions pertaining care were answered return parameters were discussed the patient was discharged home in stable condition. - Lab Data Result diagrams: 07/07/18 04:52 07/07/18 04:52 Lab Results 07/07/18 07/07/18 07/07/18 Range/Units 04:52 04:52 04:52 WBC 14.1 H (3.8-10.6) k/uL RBC 4.81 (3.80-5.40) m/uL Hgb 13.2 (11.4-16.0) gm/dL Hct 40.4 (34.0-46.0) % MCV 84.1 (80.0-100.0) fL MCH 27.4 (25.0-35.0) pg MCHC 32.6 (31.0-37.0) g/dL RDW 13.1 (11.5-15.5) % Plt Count 331 (150-450) k/uL Neutrophils % 85 % Lymphocytes % 7 % Monocytes % 5 % Eosinophils % 1 % Basophils % 0 % Neutrophils # 12.0 H (1.3-7.7) k/uL Lymphocytes # 1.0 (1.0-4.8) k/uL Monocytes # 0.7 (0-1.0) k/uL Eosinophils # 0.2 (0-0.7) k/uL Basophils # 0.1 (0-0.2) k/uL Sodium 139 (137-145) mmol/L Potassium 4.1 (3.5-5.1) mmol/L Chloride 109 H (98-107) mmol/L Carbon Dioxide 23 (22-30) mmol/L Anion Gap 7 mmol/L BUN 21 H (7-17) mg/dL Creatinine 0.65 (0.52-1.04) mg/dL Est GFR (CKD-EPI)AfAm >90 (>60 ml/min/1.73 sqM) Est GFR (CKD-EPI)NonAf >90 (>60 ml/min/1.73 sqM) Glucose 108 H (74-99) mg/dL Calcium 9.7 (8.4-10.2) mg/dL Total Bilirubin 0.4 (0.2-1.3) mg/dL AST 32 (14-36) U/L ALT 39 (9-52) U/L Alkaline Phosphatase 97 (38-126) U/L Total Protein 7.1 (6.3-8.2) g/dL Albumin 4.5 (3.5-5.0) g/dL Amylase 43 (30-110) U/L Lipase 103 (23-300) U/L Urine Color Urine Appearance (Clear) Urine pH (5.0-8.0) Ur Specific Davey (1.001-1.035) Urine Protein (Negative) Urine Glucose (UA) (Negative) Urine Ketones (Negative) Urine Blood (Negative) Urine Nitrite (Negative) Urine Bilirubin (Negative) Urine Urobilinogen (<2.0) mg/dL Ur Leukocyte Esterase (Negative) Urine RBC (0-5) /hpf Urine WBC (0-5) /hpf Ur Squamous Epith Cells (0-4) /hpf Urine Mucus (None) /hpf Urine HCG, Qual Not Detected (Not Detectd) 07/07/18 Range/Units 04:52 WBC (3.8-10.6) k/uL RBC (3.80-5.40) m/uL Hgb (11.4-16.0) gm/dL Hct (34.0-46.0) % MCV (80.0-100.0) fL MCH (25.0-35.0) pg MCHC (31.0-37.0) g/dL RDW (11.5-15.5) % Plt Count (150-450) k/uL Neutrophils % % Lymphocytes % % Monocytes % % Eosinophils % % Basophils % % Neutrophils # (1.3-7.7) k/uL Lymphocytes # (1.0-4.8) k/uL Monocytes # (0-1.0) k/uL Eosinophils # (0-0.7) k/uL Basophils # (0-0.2) k/uL Sodium (137-145) mmol/L Potassium (3.5-5.1) mmol/L Chloride (98-107) mmol/L Carbon Dioxide (22-30) mmol/L Anion Gap mmol/L BUN (7-17) mg/dL Creatinine (0.52-1.04) mg/dL Est GFR (CKD-EPI)AfAm (>60 ml/min/1.73 sqM) Est GFR (CKD-EPI)NonAf (>60 ml/min/1.73 sqM) Glucose (74-99) mg/dL Calcium (8.4-10.2) mg/dL Total Bilirubin (0.2-1.3) mg/dL AST (14-36) U/L ALT (9-52) U/L Alkaline Phosphatase (38-126) U/L Total Protein (6.3-8.2) g/dL Albumin (3.5-5.0) g/dL Amylase (30-110) U/L Lipase (23-300) U/L Urine Color Yellow Urine Appearance Cloudy H (Clear) Urine pH 6.5 (5.0-8.0) Ur Specific Davey 1.023 (1.001-1.035) Urine Protein Trace H (Negative) Urine Glucose (UA) Negative (Negative) Urine Ketones Negative (Negative) Urine Blood Negative (Negative) Urine Nitrite Negative (Negative) Urine Bilirubin Negative (Negative) Urine Urobilinogen <2.0 (<2.0) mg/dL Ur Leukocyte Esterase Small H (Negative) Urine RBC 2 (0-5) /hpf Urine WBC 3 (0-5) /hpf Ur Squamous Epith Cells 7 H (0-4) /hpf Urine Mucus Few H (None) /hpf Urine HCG, Qual (Not Detectd) Disposition Clinical Impression: Epigastric pain Disposition: HOME SELF-CARE Condition: Stable Instructions (If sedation given, give patient instructions): Abdominal Pain (ED) Additional Instructions: Maintain a bland diet and avoid spicy or greasy foods avoid caffeine or chocolates eat small meals and avoid overeating If you have persistent symptoms follow-up with gastroenterology for possible endoscopy Is patient prescribed a controlled substance at d/c from ED?: No Referrals: Maco Espino MD [Primary Care Provider] - 1-2 days
[2018-07-07 05:03] LABS: Basophils # (A) 0.1 k/uL (0-0.2); Basophils % (A) 0 %; Eosinophils # (A) 0.2 k/uL (0-0.7); Eosinophils % (A) 1 %; HCT 40.4 % (34.0-46.0); HGB 13.2 gm/dL (11.4-16.0); Lymphocytes % (A) 7 %; MCH 27.4 pg (25.0-35.0); MCHC 32.6 g/dL (31.0-37.0); MCV 84.1 fL (80.0-100.0); Mean Platelet Volume 6.6; Monocytes # (A) 0.7 k/uL (0-1.0); Monocytes % (A) 5 %; Neutrophils % (A) 85 %; Platelet Count 331 k/uL (150-450); RBC 4.81 m/uL (3.80-5.40); RDW 13.1 % (11.5-15.5); WBC 14.1 k/uL (3.8-10.6)
[2018-07-07 05:06] LABS: Appearance,Urine Cloudy (Clear); Bilirubin,Urine Negative (Negative); Blood,Urine Negative (Negative); Color,Urine Yellow; Glucose,Urine (UA) Negative (Negative); Ketones,Urine Negative (Negative); Leukocyte Esterase,Urine Small (Negative); Mucus,Urine Few /hpf; Nitrite,Urine Negative (Negative); PH, Urine 6.5 (5.0-8.0); Protein,Urine Trace (Negative); RBC,Urine 2 /hpf (0-5); Specific Gravity,Urine 1.023 (1.001-1.035); Squamous Epithelial Cell,Urine 7 /hpf (0-4); Urobilinogen,Urine <2.0 mg/dL (<2.0); WBC,Urine 3 /hpf (0-5)
[2018-07-07 05:12] LABS: ALT 39 U/L (9-52); AST 32 U/L (14-36); Albumin 4.5 g/dL (3.5-5.0); Alkaline Phosphatase 97 U/L (38-126); Amylase 43 U/L (30-110); Anion Gap 7 mmol/L; Blood Urea Nitrogen 21 mg/dL (7-17); Calcium 9.7 mg/dL (8.4-10.2); Carbon Dioxide 23 mmol/L (22-30); Chloride 109 mmol/L (98-107); Glucose 108 mg/dL (74-99); Lipase 103 U/L (23-300); Potassium 4.1 mmol/L (3.5-5.1); Sodium 139 mmol/L (137-145); Total Bilirubin 0.4 mg/dL (0.2-1.3); Total Protein 7.1 g/dL (6.3-8.2)
[2018-07-07] MEDS ORDERED: ONDANSETRON 4 MG/2 ML VIAL IVP STA (06:26)
[2018-07-07] MEDS ORDERED: MAG HYDROX/AL HYDROX/SIMETH 30 ML, HYOSCYAMINE ELIXIR 10 ML, CIMETIDINE HCL 300 MG, LID... PO STA ×4 (06:26)
[2018-07-07 07:10] VITALS: BP 96/65; PULSE 73; RESP 18; TEMP 98.3
== END 2018-07-07 07:10 | disposition home or self-care (01) ==
LOC: EC 03:57
DX: R10.13 Epigastric pain (principal); R10.811 Right upper quadrant abdominal tenderness; R11.0 Nausea; Z79.899 Other long term (current) drug therapy; Z88.8 Allergy status to other drugs, medicaments and biological substances; Z90.49 Acquired absence of other specified parts of digestive tract
CPT/HCPCS: 36415; 80053; 82150; 83690; 85025; 81001; 81025; 99284; 96374; 96361 ×2; J2405

== ENCOUNTER → 2019-09-08 | Outpatient (CLI) | payer BC ==
--- NOTE | 2019-09-08 15:12 | US ---
EXAMINATION TYPE: US axilla RT DATE OF EXAM: 09/08/2019 COMPARISON: NONE CLINICAL HISTORY: 34-year-old female R22.2 Swelling, mass AND LUMP. TECHNIQUE: Multiple sonographic images of the right axilla were obtained. FINDINGS: Palpable located approximately 6 inches below axilla. Patient states she had an infection at this sit e last year in October. The axilla was scanned and there are several prominent but nonenlarged lymph nodes noted. The area of palpable was scanned and there is a round 0.8 x 0.8 x 1.0 cm cystic structure with mural based nodularity and some peripheral flow. IMPRESSION: Palpable area below the right axilla shows a 1 cm cystic lesion in the subcutaneous adipose with some mural based material. Possible tiny infective fluid collection versus hematoma with retractile clot. This area should be followed clinically to ensure resolution with treatment. A one-month follow-up c an also reassess.
== END | disposition home or self-care (01) ==
LOC: RADUSWWP 14:12
PROVIDERS: ATTEND Family Medicine
DX: R22.2 Localized swelling, mass and lump, trunk (principal)

== ENCOUNTER 2022-03-19 19:13 | Emergency (ER) | payer BC ==
[2022-03-19 19:28] VITALS: BP 125/83; PULSE 86; RESP 18; TEMP 97.6
[2022-03-19] MEDS ORDERED: PROPARACAINE 0.5% OPHTH DROPS 15 ML BTL LEFT EYE STA (19:56)
[2022-03-19] MEDS ORDERED: FLUORESCEIN STRIPS 1 MG STRIP RIGHT EYE ONE (19:57)
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
== END 2022-03-19 20:26 | disposition home or self-care (01) ==
LOC: EC 19:13
DX: S05.02XA Injury of conjunctiva and corneal abrasion without foreign body, left eye, initial encounter (principal); I48.91 Unspecified atrial fibrillation; E07.9 Disorder of thyroid, unspecified; Z88.8 Allergy status to other drugs, medicaments and biological substances; Z88.2 Allergy status to sulfonamides; Z79.890 Hormone replacement therapy; X58.XXXA Exposure to other specified factors, initial encounter
CPT/HCPCS: 99283

== ENCOUNTER 2022-08-28 17:52 | Emergency (ER) | payer BC ==
[2022-08-28 18:08] VITALS: BP 117/78; PULSE 74; TEMP 98.4
[2022-08-28] MEDS ORDERED: KETOROLAC 15 MG/ML 1 ML VIAL IM STA (18:30)
--- NOTE | 2022-08-28 18:31 | ED ---
Lower Extremity Injury HPI - General Chief Complaint: Extremity Injury, Lower Stated Complaint: R ankle injury Time Seen by Provider: 08/28/22 18:22 Source: patient, RN notes reviewed Mode of arrival: ambulatory Limitations: no limitations - History of Present Illness Initial Comments: Patient is a 37-year-old female presenting to the emergency room complaints of pain in her right ankle and right lower leg after tripping and falling out of her car onto gravel prior to coming into the hospital. She reports rolling her ankle and landing awkwardly with subsequent immediate pain to her right ankle and swelling. She reports limited active range of motion due to pain and swelling. She states that her pain from her ankle is radiating upw ards into her lower leg and down into her foot. She has abrasions to her left lower extremity and forearm. She denies any other joint pain, head trauma or loss of consciousness. She has a past medical history significant for hypothyroidism and induced atrial fibrillation which has resolved; she is not on any anticoagulants. - Related Data Home Medications Medication Instructions Recorded Confirmed Levothyroxine Sodium 25 mcg PO DAILY 11/15/21 11/15/21 Previous Rx's Medication Instructions Recorded Acetaminophen Tab [Tylenol Tab] 500 mg PO Q6H PRN #24 tablet 11/16/21 Amoxic-Pot Clav 875-125Mg 1 tab PO Q12HR 1 Days #14 tab 11/16/21 [Augmentin 875-125] Naproxen [Naprosyn] 375 mg PO Q12HR PRN #20 tablet 11/16/21 Erythromycin Ophth Oint [Romycin 1 applic LEFT EYE QID #3.5 gm 03/19/22 Ophth Oint] Allergies Allergy/AdvReac Type Severity Reaction Status Date / Time drospirenone [From FRANDY (28)] Allergy Unknown Verified 03/19/22 19:28 ethinyl estradiol Allergy Unknown Verified 03/19/22 19:28 [From FRANDY (28)] sulfamethoxazole Allergy Confusion Verified 03/19/22 19:28 [From Bactrim] trimethoprim [From Bactrim] Allergy Confusion Verified 03/19/22 19:28 Review of Systems ROS Statement: Those systems with pertinent positive or pertinent negative responses have been documented in the HPI. ROS Other: All systems not noted in ROS Statement are negative. Past Medical History Past Medical History: Atrial Fibrillation, Thyroid Disorder Additional Past Medical History / Comment(s): migraines years ago. Hx. of polyp. Hx. of A-Fib resolved after starting Synthroid. History of Any Multi-Drug Resistant Organisms: None Reported Past Surgical History: Adenoidectomy, Appendectomy, Tonsillectomy Additional Past Surgical History / Comment(s): 2016 colonoscopy/polypectomy which was precancerous per pt. Past Anesthesia/Blood Transfusion Reactions: No Reported Reaction Past Psychological History: No Psychological Hx Reported Smoking Status: Never smoker Past Alcohol Use History: Occasional Past Drug Use History: None Reported - Past Family History Mother Family Medical History: Cancer Additional Family Medical History / Comment(s): Mother of lung cancer. She was a smoker. Father Family Medical History: No Reported History Sister(s) Additional Family Medical History / Comment(s): Sister has mitral valve prolapse. General Exam Limitations: no limitations General appearance: alert, in no apparent distress Head exam: Present: atraumatic, normocephalic, normal inspection Eye exam: Present: normal appearance, PERRL, EOMI. Absent: scleral icterus, conjunctival injection, periorbital swelling ENT exam: Present: normal exam, mucous membranes moist Neck exam: Present: normal inspection, full ROM Respiratory exam: Absent: respiratory distress, accessory muscle use Cardiovascular Exam: Present: regular rate GI/Abdominal exam: Present: soft. Absent: distended, tenderness, guarding, rebound, rigid Right Ankle exam: Present: tenderness, swelling. Absent: full ROM (limited due to pain and swelling), abrasion, laceration, ecchymosis, deformity, crepitus, dislocation, erythema, anterior draw sign Neurovascular tendon exam: Present: no vascular compromise Gait: observed and limited by pain Back exam: Present: normal inspection Neurological exam: Present: alert, oriented X3, CN II-XII intact Psychiatric exam: Present: normal affect, normal mood Skin exam: Present: abrasion (left lower leg and forearm no foreign body or bleeding) Course Vital Signs 08/28/22 08/28/22 18:06 20:11 Temperature 98.4 F Pulse Rate 74 Respiratory 18 20 Rate Blood Pressure 117/78 O2 Sat by Pulse 100 98 Oximetry Medical Decision Making - Medical Decision Making Was pt. sent in by a medical professional or institution (, PA, JINGLE WRITER, urgent care, hospital, or shelter...) When possible be specific @ -No Did you speak to anyone other than the patient for history (EMS, parent, family, police, friend...)? What history was obtained from this source @ -No Did you review nursing and triage notes (agree or disagree)? Why? @ -I reviewed and agree with nursing and triage notes Were old charts reviewed (outside hosp., previous admission, EMS record, old EKG, old radiological studies, urgent care reports/EKG's, shelter records)? Report findings @ -No old charts were reviewed Differential Diagnosis (chest pain, altered mental status, abdominal pain women, abdominal pain men, vaginal bleeding, weakness, fever, dyspnea, syncope, headache, dizziness, GI bleed, back pain, seizure, CVA, palpatations, mental health, musculoskeletal)? @ -Differential Musculoskeletal Muscular strain, contusion, ligament sprain, fracture, arthritis, septic arth ritis, bursitis, cellulitis, muscle spasm, nerve compression, DVT, arterial occlusion, herpes zoster, electrolyte abnormality, tumor.... This is not meant to be in all inclusive list EKG interpreted by me (3pts min.). @ -None done X-rays interpreted by me (1pt min.). @ -X-ray right ankle: No evidence of fracture or dislocation. Soft tissue swelling noted. Radiologist cortical-based lesion at the distal lateral tibia metaphysis consistent with ossified nonossifying fibroma measuring 2.[address] interpreted by me (1pt min.). @ -None done U/S interpreted by me (1pt. min.). @ -None done What testing was considered but not performed or refused? (CT, X-rays, U/S, labs)? Why? @ -None What meds were considered but not given or refused? Why? @ -None Did you discuss the management of the patient with other professionals (professionals i.e. Dr., PA, JINGLE WRITER, lab, RT, psych nurse, social staff worker, sail finisher hand, teacher, chief risk officer, shelter case manager)? Give summary @ -No Was smoking cessation discussed for >3mins.? @ -No Was critical care preformed (if so, how long)? @ -No Were there social determinants of health that impacted care today? How? (Homelessness, low income, unemployed, alcoholism, drug addiction, transportation, low edu. Level, literacy, decrease access to med. care, care home, rehab)? @ -No Was there de-escalation of care discussed even if they declined (Discuss DNR or withdrawal of care, Hospice)? DNR status @ -No What co-morbidities impacted this encounter? (DM, HTN, Smoking, COPD, CAD, Cancer, CVA, ARF, Chemo, Hep., AIDS, mental health diagnosis, sleep apnea, morbid obesity)? @ -None Was patient admitted / discharged? Hospital course, mention meds given and route, prescriptions, significant lab abnormalities, going to OR and other pertinent info. @ -37-year-old female presenting to the emergency room with complaints of right ankle pain radiating into her foot and lower leg after falling out of her car. No head trauma or pain in any other joints. Uncomplicated abrasions noted. No lacerations. Will obtain x-ray of ankle and give Toradol for pain. X-ray negative for fracture or dislocation. Soft tissue swelling noted. 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 Pain improved with Toradol. Findings from x-ray including incidental findings discussed with patient. Encouraged follow-up with primary care provider including repeat x-ray in 7-10 days if continued pain. Advised rest, ice, use splint and elevation when possible along with [id number] ibuprofen or Tylenol as needed for pain. Will discharge home in stable condition with stirup air splint intact to right ankle advising R.I.C.E with weightbearing as tolerated [id number] Tylenol or Motrin as needed for pain and follow-up with primary care provider. Undiagnosed new problem with uncertain prognosis? @ -No Drug Therapy requiring intensive monitoring for toxicity (Heparin, Nitro, Insulin, Cardizem)? @ -No Were any procedures done? @ -No Diagnosis/symptom? @ -Right ankle sprain Acute, or Chronic, or Acute on Chronic? @ -Acute Uncomplicated (without systemic symptoms) or Complicated (systemic symptoms)? @ -Uncomplicated Side effects of treatment? @ -No Exacerbation, Progression, or Severe Exacerbation? @ -No Poses a threat to life or bodily function? How? (Chest pain, [place], [place], pneumonia, PE, COPD, DKA, ARF, appy, cholecystitis, CVA, Diverticulitis, Homicidal, Suicidal, threat to staff... and all critical care pts) @ -No Case discussed with Dr. Dominguez - Radiology Data Radiology results: report reviewed, image reviewed Disposition Clinical Impression: Right ankle sprain Disposition: HOME SELF-CARE Condition: Stable Instructions (If sedation given, give patient instructions): Ankle Sprain (ED) Additional Instructions: Conservative management with R. I. C. E. Rest joint when possible, apply ice for 20 minute increments every 2-3 hours, keep compression/supported with ankle stirup or ALONA when possible. Elevate joint when possible. Utilize [id number] analgesics of ibuprofen or Tylenol as needed for pain. Please follow-up with your primary care provider. Please return to the Emergency Department if symptoms worsen or any other concerns. Is patient prescribed a controlled substance at d/c from ED?: No Referrals: Maco Espino MD [Primary Care Provider] - 1-2 days Time of Disposition: 19:59
--- NOTE | 2022-08-28 19:33 | XR ---
EXAMINATION TYPE: XR ankle complete RT DATE OF EXAM: 08/28/2022 6:49 PM INDICATION: Patient age:Female; 37 years old; Reason for study: fall; COMPARISON: None TECHNIQUE: The right ankle is imaged in frontal, lateral and oblique projections. FINDINGS: There is no evidence of acute osseous pathology. The joint spaces are well-preserved without evidenc e of subluxation or dislocation. Kager's fat pad is intact. No radiopaque foreign bodies are identifi ed. 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 IMPRESSION: 1. No evidence of acute fracture. 2. Subcutaneous swelling around the ankle likely secondary to underlying soft tissue injury. 3. Cortical-based lesion within the distal lateral tibia metaphysis likely representing ossified nono ssifying fibroma.
[2022-08-28 20:12] VITALS: RESP 20
== END 2022-08-28 20:12 | disposition home or self-care (01) ==
LOC: EC 17:52
DX: S93.401A Sprain of unspecified ligament of right ankle, initial encounter (principal); I48.91 Unspecified atrial fibrillation; E07.9 Disorder of thyroid, unspecified; Z79.890 Hormone replacement therapy; Z88.1 Allergy status to other antibiotic agents; Z88.2 Allergy status to sulfonamides; Z88.8 Allergy status to other drugs, medicaments and biological substances; W01.0XXA Fall on same level from slipping, tripping and stumbling without subsequent striking against object, initial encounter
CPT/HCPCS: 73610; 99283; 96372; J1885